=== PATIENT | female | born 1995 | race Caucasian/White ===

== ENCOUNTER 2021-05-12 22:13 | Emergency (ER) | payer SELFPAY ==
[~2021-05-12] VITALS: Ht 167.6 cm; Wt 109.0 kg
[2021-05-12 22:58] VITALS: BP 125/86
[2021-05-12] MEDS ORDERED: TRAM50TA2 PO (22:59)
[2021-05-12] MEDS ORDERED: IBUP-1984 PO (22:59)
[2021-05-12] MEDS ORDERED: ketorolac tromethamine 15mg/ml inj. IM ONE (23:00)
== END 2021-05-12 23:15 | disposition home or self-care (01) ==
LOC: ER 22:14
DX: M54.50 Low back pain, unspecified (principal); V87.7XXA Person injured in collision between other specified motor vehicles (traffic), initial encounter; Y93.89 Activity, other specified; Y92.89 Other specified places as the place of occurrence of the external cause; Y99.8 Other external cause status
CPT/HCPCS: 96372; 99283; J1885